=== PATIENT | male | born 1930 | race Caucasian/White ===

== ENCOUNTER 2020-06-20 12:13 | Emergency (ER) | payer MEDICARE ==
[~2020-06-20] VITALS: Ht 182.9 cm; Wt 79.5 kg
[2020-06-20 15:58] LABS: ALANINE AMINOTRANSFERASE 24 U/L (12-78); ALBUMIN 3.9 G/DL (3.4-5.0); ALBUMIN/GLOBULIN RATIO 0.9 (1.1-1.5); ALKALINE PHOSPHATASE 79 IU/L (46-116); ANION GAP 9 (8-16); ASPARTATE AMINO TRANSFERASE 25 U/L (10-37); BILIRUBIN,TOTAL 0.7 MG/DL (0.1-1.0); BLOOD UREA NITROGEN 19 MG/DL (7-18); BUN/CREATININE RATIO 23.2 (5.4-32.0); CALCIUM 8.9 MG/DL (8.5-10.1); CHLORIDE 105 MMOL/L (99-107); CREATININE 0.82 MG/DL (0.60-1.10); GLUCOSE 133 MG/DL (70-104); SODIUM 142 MMOL/L (135-145); TOTAL CARBON DIOXIDE 27.9 MMOL/L (24-32); TOTAL PROTEIN 8.3 G/DL (6.4-8.2); eGFR 89 ML/MIN
--- NOTE | 2020-06-20 16:15 | NUR ---
Pt taken to MRI
[2020-06-20] MEDS ORDERED: PRED50TA PO (17:01)
[2020-06-20] MEDS ORDERED: iohexol 350MG/ML 100ml bottle IV ONE (18:11)
[2020-06-20 18:23] LABS: BASOPHILS % (AUTO) 0.5 % (0-1); EOSINOPHILS % (AUTO) 0.5 % (0-6); HEMATOCRIT 41.5 % (42.0-52.0); LYMPHOCYTES % (AUTO) 18.4 % (21-51); MEAN CORPUSCULAR HEMOGLOBIN 32.1 PG (27.0-31.0); MEAN CORPUSCULAR HGB CONC 33.7 g/dL (33.0-36.5); MEAN CORPUSCULAR VOLUME 95.3 FL (78-98); MEAN PLATELET VOLUME 9.1 FL (7.4-10.4); MONOCYTES # (AUTO) 0.4 X10'3 (0-0.9); MONOCYTES % (AUTO) 7.9 % (2-12); NEUTROPHILS # (AUTO) 3.8 X10'3 (1.8-7.7); NEUTROPHILS % (AUTO) 72.7 % (42-75); PLATELET COUNT 125 X10'3 (140-440); RED BLOOD COUNT 4.36 X10'6 (4.70-6.10); RED CELL DISTRIBUTION WIDTH 13.6 % (11.5-14.5); WHITE BLOOD COUNT 5.2 X10'3 (4.5-11.0)
[2020-06-20 18:35] LABS: PARTIAL THROMBOPLASTIN TIME 30 SECONDS (22-32)
[2020-06-20 19:52] VITALS: BP 189/95
[2020-06-21] MEDS ORDERED: PRED10TA23 PO (11:45)
== END 2020-06-20 20:26 | disposition home or self-care (01) ==
LOC: ER 12:15
DX: H91.92 Unspecified hearing loss, left ear (principal); Z79.899 Other long term (current) drug therapy
CPT/HCPCS: 36415; 70496; 70498; 70543; 70553; 80053; 85025; 85610; 85730; 93005; 99285; Q9967

== ENCOUNTER 2020-06-21 09:15 | Emergency (ER) | payer MEDICARE ==
[~2020-06-21] VITALS: Ht 182.9 cm; Wt 77.3 kg
[~2020-06-21 09:15] MED LIST: PRED50TA PO
--- NOTE | 2020-06-21 10:14 | NUR ---
PAGED TO ROOM 7 FOR IV. UPON ARRIVAL PT HAS TWO WORKING IV'S PT IN NON-COMPLIANT WITH HOLDING STILL. SPOKE WITH MEDICAL SECRETARY TEACHER SHE STATED MAREN SAID TO CALL THE PICC NURSE TO PLACE A PICC LINE. ADVISED RN THAT A PICC LINE FOR THIS PATIENT IS NOT APPROPRIATE UNTIL I CAN GET HER TO A LARGER ROOM WITH PRIVACY TO DECREASE RISK OF CLABSI AND PATIENT COMPLIANCE WITH HOLDING STILL. Sandra JORDAN PICC RN
[2020-06-21 11:35] VITALS: BP 162/92
--- NOTE | 2020-06-21 11:36 | NUR ---
Provider is discussing the plan of care with the patient at this time.
[2020-06-21] MEDS ORDERED: PRED10TA23 PO (11:45)
== END 2020-06-21 12:21 | disposition home or self-care (01) ==
LOC: ER 09:15
DX: H91.92 Unspecified hearing loss, left ear (principal); I65.22 Occlusion and stenosis of left carotid artery; Z79.899 Other long term (current) drug therapy
CPT/HCPCS: 99283; 99284

== ENCOUNTER 2020-07-13 08:59 | Emergency (ER) | payer MEDICARE ==
[~2020-07-13] VITALS: Ht 182.9 cm; Wt 79.5 kg
[~2020-07-13 08:59] MED LIST changes: +ASPI81TA52 PO; +MULT-1085 PO; +PRED10TA23 PO; +VIT C PO
[2020-07-13] MEDS ORDERED: iohexol 300mg/ml 100ml inj. ONE (09:11)
[2020-07-13 11:15] VITALS: BP 192/107
[2020-07-13 11:27] VITALS: BP 140/83
[2020-07-13 12:15] VITALS: BP 155/91
[2020-07-13 12:51] LABS: BFSOURCE LEFT PLEURAL FLD; PLEURAL FLUID PH 7.178 (7.63-7.65)
[2020-07-13 13:08] LABS: BF RBC COUNT 125 /CU MM; BF WBC COUNT 715 /CU MM (0-1000); BFAPPEAR HAZY; BFCOLOR YELLOW; BFVOLUME 59 ML; LYMPHOCYTES,BODY FLUID 79 %; MONOCYTES,BODY FLUID 14 %; NEUTROPHILS,BODY FLUID 7 %
[2020-07-13 13:12] LABS: GLUCOSE,BODY FLUID 118 MG/DL; LDH,BODY FLUID 76 U/L; TOTAL PROTEIN,BODY FLUID 3.7 G/DL
== END 2020-07-13 12:17 | disposition home or self-care (01) ==
LOC: ER 09:00
DX: J90 Pleural effusion, not elsewhere classified (principal); I48.91 Unspecified atrial fibrillation; Z79.82 Long term (current) use of aspirin; Z79.899 Other long term (current) drug therapy
CPT/HCPCS: 32555; 71046; 71260; 82945; 83615; 83986; 84157; 89051; 99285; Q9967

== ENCOUNTER 2020-09-24 08:17 | Day surgery (SDC) | payer MEDICARE ==
[~2020-09-24] VITALS: Ht 182.9 cm; Wt 78.4 kg
[2020-09-24 08:15] VITALS: BP 179/89
[~2020-09-24 08:17] MED LIST changes: +ASCO-134 PO; -PRED10TA23 PO; -PRED50TA PO; -VIT C PO
[2020-09-24 08:38] VITALS: BP 161/109
[2020-09-24] MEDS ORDERED: albumin 25% 100mL bottle x 1 IV PRN (08:40)
[2020-09-24 08:55] VITALS: BP 145/107
[2020-09-24 09:15] VITALS: BP 163/95
[2020-09-24 10:09] LABS: GLUCOSE,BODY FLUID 117 MG/DL; LDH,BODY FLUID 97 U/L; TOTAL PROTEIN,BODY FLUID 3.6 G/DL
[2020-09-24 10:39] LABS: BFAPPEAR HAZY; BFCOLOR YELLOW
[2020-09-24 10:40] LABS: BF RBC COUNT 9475 /CU MM; BF WBC COUNT 2525 /CU MM (0-1000); BFVOLUME 60 ML; LYMPHOCYTES,BODY FLUID 88 %; MONOCYTES,BODY FLUID 4 %; NEUTROPHILS,BODY FLUID 8 %
== END 2020-09-24 09:35 | disposition home or self-care (01) ==
LOC: SSTAY O 08:17
PROVIDERS: ATTEND Radiology Vascular & Interventional Radiology
DX: J90 Pleural effusion, not elsewhere classified (principal); J45.909 Unspecified asthma, uncomplicated; I10 Essential (primary) hypertension; I48.0 Paroxysmal atrial fibrillation; Z87.01 Personal history of pneumonia (recurrent); Z79.82 Long term (current) use of aspirin; Z79.899 Other long term (current) drug therapy; Z98.890 Other specified postprocedural states
CPT/HCPCS: 32555; 71045; 82945; 83615; 84157; 87070; 89051

== ENCOUNTER 2020-11-02 09:39 | Inpatient (IN) | payer MEDICARE ==
[~2020-11-02] VITALS: Ht 182.9 cm; Wt 81.2 kg
[2020-11-02 11:55] LABS: BASOPHILS % (AUTO) 0.9 % (0-1); HEMATOCRIT 43.7 % (42.0-52.0); HEMOGLOBIN 14.8 g/dl (14.0-17.9); LYMPHOCYTES # (AUTO) 0.6 X10'3 (1.1-4.8); MEAN CORPUSCULAR HEMOGLOBIN 32.2 PG (27.0-31.0); MEAN CORPUSCULAR HGB CONC 33.8 g/dL (33.0-36.5); MEAN CORPUSCULAR VOLUME 95.3 FL (78-98); MONOCYTES # (AUTO) 0.3 X10'3 (0-0.9); MONOCYTES % (AUTO) 7.5 % (2-12); NEUTROPHILS # (AUTO) 3.1 X10'3 (1.8-7.7); RED CELL DISTRIBUTION WIDTH 15.1 % (11.5-14.5)
[2020-11-02 11:57] LABS: EOSINOPHILS % (AUTO) 0.8 % (0-6); LYMPHOCYTES % (AUTO) 14.5 % (21-51); NEUTROPHILS % (AUTO) 76.3 % (42-75); PLATELET COUNT 123 X10'3 (140-440); RED BLOOD COUNT 4.59 X10'6 (4.70-6.10)
[2020-11-02 12:10] LABS: ALANINE AMINOTRANSFERASE 20 U/L (12-78); ALBUMIN 4.1 G/DL (3.4-5.0); ALKALINE PHOSPHATASE 79 IU/L (46-116); ANION GAP 10 (8-16); ASPARTATE AMINO TRANSFERASE 30 U/L (10-37); BILIRUBIN,TOTAL 0.9 MG/DL (0.1-1.0); BLOOD UREA NITROGEN 21 MG/DL (7-18); BUN/CREATININE RATIO 25.6 (5.4-32.0); CALCIUM 8.7 MG/DL (8.5-10.1); CHLORIDE 102 MMOL/L (99-107); CREATININE 0.82 MG/DL (0.60-1.10); GLUCOSE 108 MG/DL (70-104); POTASSIUM 4.1 MMOL/L (3.5-5.1); SODIUM 143 MMOL/L (135-145); TOTAL PROTEIN 8.4 G/DL (6.4-8.2); eGFR 89 ML/MIN
[2020-11-02] MEDS ORDERED: POLY15DR31 EACHEYE (13:35)
[2020-11-02 14:54] VITALS: BP 165/124
[2020-11-02 15:12] VITALS: BP 152/91
[2020-11-02] MEDS ORDERED: magnesium hydroxide 30ml (MOM) UD suspension PO PRN (15:20)
[2020-11-02] MEDS ORDERED: acetaminophen 325mg tablet PO PRN ×2 (15:20)
[2020-11-02] MEDS ORDERED: HYDROcodone/acetaminophen 5mg/325mg tablet PO PRN (15:20)
[2020-11-02] MEDS ORDERED: potassium Cl 20 mEq SR tablet PO PRN ×2 (15:20)
[2020-11-02] MEDS ORDERED: magnesium 4gm in 100ml NS 100 ML IV PRN (15:20)
[2020-11-02] MEDS ORDERED: potassium Cl 40MEQ/1/2NS 520ml 520 ML IV PRN ×2 (15:20)
[2020-11-02] MEDS ORDERED: magnesium Cl slow-release 64mg tablet PO PRN (15:20)
[2020-11-02] MEDS ORDERED: mag hydrox/Alum hydrox/simeth 30ml oral suspension PO PRN (15:20)
[2020-11-02] MEDS ORDERED: morphine 2 MG/ML inj. syringe IV PRN (15:20)
[2020-11-02] MEDS ORDERED: ondansetron/PF 4mg/2ml inj IV PRN (15:20)
[2020-11-02] MEDS ORDERED: magnesium 2GM in 50ml NS 50 ML IV PRN (15:20)
[2020-11-02 15:50] LABS: BFSOURCE LEFT PLEURAL FLD; PLEURAL FLUID PH 7.437 (7.63-7.65)
[2020-11-02 16:15] LABS: GLUCOSE,BODY FLUID 117 MG/DL; LDH,BODY FLUID 90 U/L; TOTAL PROTEIN,BODY FLUID 3.5 G/DL
[2020-11-02 16:29] LABS: BF WBC COUNT 875 /CU MM (0-1000); BFAPPEAR HAZY; BFCOLOR YELLOW; BFVOLUME 58 ML; LYMPHOCYTES,BODY FLUID 95 %; MONOCYTES,BODY FLUID 2 %; NEUTROPHILS,BODY FLUID 3 %
[2020-11-02 16:30] LABS: BF RBC COUNT 185 /CU MM
[2020-11-02] MEDS ORDERED: albuterol 2.5 MG/3 ML nebule NEB PRN (17:25)
[2020-11-02] MEDS ORDERED: CefTRIAXone 2gm/D5W 50ml BAG 50 ML IV ONE (17:30)
[2020-11-02] MEDS: furosemide 40mg/4ml inj IV SCH (19:19)
[2020-11-02] MEDS: K and/or MAG REPLACEMENT MC SCH (19:20)
[2020-11-02] MEDS: heparin, porcine 5000 units/ml vial SQ SCH (19:20)
--- NOTE | 2020-11-02 22:03 | NUR ---
PAGER ID: [phone] MESSAGE: [phone] , Chantal savannah patients troponins went from 0.05 to 0.06. just informing . no changes on status/condition or vitals signs thank you Sidney black
[2020-11-03 05:43] LABS: BASOPHILS % (AUTO) 0.7 % (0-1); EOSINOPHILS % (AUTO) 0.8 % (0-6); HEMATOCRIT 39.9 % (42.0-52.0); HEMOGLOBIN 13.5 g/dl (14.0-17.9); LYMPHOCYTES # (AUTO) 0.7 X10'3 (1.1-4.8); LYMPHOCYTES % (AUTO) 13.2 % (21-51); MEAN CORPUSCULAR HEMOGLOBIN 31.9 PG (27.0-31.0); MEAN CORPUSCULAR HGB CONC 33.9 g/dL (33.0-36.5); MEAN CORPUSCULAR VOLUME 94.2 FL (78-98); MONOCYTES # (AUTO) 0.5 X10'3 (0-0.9); MONOCYTES % (AUTO) 8.8 % (2-12); NEUTROPHILS # (AUTO) 4.2 X10'3 (1.8-7.7); NEUTROPHILS % (AUTO) 76.5 % (42-75); PLATELET COUNT 100 X10'3 (140-440); RED BLOOD COUNT 4.23 X10'6 (4.70-6.10); RED CELL DISTRIBUTION WIDTH 14.9 % (11.5-14.5); WHITE BLOOD COUNT 5.4 X10'3 (4.5-11.0)
[2020-11-03 06:03] LABS: ALANINE AMINOTRANSFERASE 15 U/L (12-78); ALBUMIN/GLOBULIN RATIO 0.9 (1.1-1.5); ALKALINE PHOSPHATASE 62 IU/L (46-116); ANION GAP 6 (8-16); ASPARTATE AMINO TRANSFERASE 26 U/L (10-37); BILIRUBIN,TOTAL 0.9 MG/DL (0.1-1.0); BLOOD UREA NITROGEN 22 MG/DL (7-18); BUN/CREATININE RATIO 26.8 (5.4-32.0); CALCIUM 8.1 MG/DL (8.5-10.1); CHLORIDE 105 MMOL/L (99-107); CREATININE 0.82 MG/DL (0.60-1.10); GLUCOSE 92 MG/DL (70-104); POTASSIUM 3.8 MMOL/L (3.5-5.1); SODIUM 142 MMOL/L (135-145); TOTAL CARBON DIOXIDE 30.8 MMOL/L (24-32); TOTAL PROTEIN 6.4 G/DL (6.4-8.2); eGFR 89 ML/MIN
[2020-11-03 06:06] LABS: MAGNESIUM 1.7 MG/DL (1.5-2.4)
--- NOTE | 2020-11-03 06:26 | NUR ---
Patient awake on a hospital bed,denies sob at this time.Awaiting room patient assignment,call light within reach.
[2020-11-03 06:45] LABS: ANISOCYTOSIS 1+; LARGE PLATELETS FEW; PLATELET ESTIMATE DECREASED; POIKILOCYTOSIS FEW
[2020-11-03] MEDS: pantoprazole 40mg Tablet.DR PO SCH (07:21)
[2020-11-03] MEDS: heparin, porcine 5000 units/ml vial SQ SCH ×2 (07:21→19:41)
[2020-11-03] MEDS: furosemide 40mg/4ml inj IV SCH ×2 (07:23→15:10)
[2020-11-03] MEDS: CefTRIAXone 2gm/D5W 50ml BAG 50 ML IV SCH (07:27)
[2020-11-03] MEDS: K and/or MAG REPLACEMENT MC SCH ×2 (08:00→19:42)
--- NOTE | 2020-11-03 08:13 | NUR ---
patient refused lasix,Dr. Newsome made aware.
[2020-11-03 15:04] VITALS: BP 137/85
[2020-11-03 18:00] VITALS: BP 138/80
--- NOTE | 2020-11-03 18:18 | NUR ---
Problems reprioritized. Patient report given, questions answered & plan of care reviewed with PETER Reyes.
[2020-11-03] MEDS: carVEDilol 3.125mg tablet PO SCH (19:41)
[2020-11-03] MEDS: lactobacillus rhamnosus 10,000 MMU CELLS/CAPSULE PO SCH (19:41)
[2020-11-03 22:00] VITALS: BP 130/64
[2020-11-04 02:00] VITALS: BP 102/55
[2020-11-04 06:00] VITALS: BP 144/78
[2020-11-04 06:02] LABS: BASOPHILS % (AUTO) 0.8 % (0-1); EOSINOPHILS # (AUTO) 0.2 X10'3 (0-0.9); EOSINOPHILS % (AUTO) 4.2 % (0-6); HEMATOCRIT 38.5 % (42.0-52.0); HEMOGLOBIN 12.9 g/dl (14.0-17.9); LYMPHOCYTES # (AUTO) 0.7 X10'3 (1.1-4.8); LYMPHOCYTES % (AUTO) 13.7 % (21-51); MEAN CORPUSCULAR HEMOGLOBIN 30.9 PG (27.0-31.0); MEAN CORPUSCULAR HGB CONC 33.5 g/dL (33.0-36.5); MEAN CORPUSCULAR VOLUME 92.4 FL (78-98); MEAN PLATELET VOLUME 9.8 FL (7.4-10.4); MONOCYTES # (AUTO) 0.7 X10'3 (0-0.9); MONOCYTES % (AUTO) 12.9 % (2-12); NEUTROPHILS # (AUTO) 3.6 X10'3 (1.8-7.7); NEUTROPHILS % (AUTO) 68.4 % (42-75); PLATELET COUNT 104 X10'3 (140-440); RED BLOOD COUNT 4.17 X10'6 (4.70-6.10); RED CELL DISTRIBUTION WIDTH 14.9 % (11.5-14.5); WHITE BLOOD COUNT 5.2 X10'3 (4.5-11.0)
[2020-11-04 06:14] LABS: ALANINE AMINOTRANSFERASE 14 U/L (12-78); ALBUMIN 2.7 G/DL (3.4-5.0); ALBUMIN/GLOBULIN RATIO 0.8 (1.1-1.5); ALKALINE PHOSPHATASE 54 IU/L (46-116); ANION GAP 4 (8-16); ASPARTATE AMINO TRANSFERASE 21 U/L (10-37); BILIRUBIN,TOTAL 0.9 MG/DL (0.1-1.0); BLOOD UREA NITROGEN 23 MG/DL (7-18); CHLORIDE 106 MMOL/L (99-107); CREATININE 0.82 MG/DL (0.60-1.10); GLUCOSE 97 MG/DL (70-104); MAGNESIUM 1.8 MG/DL (1.5-2.4); POTASSIUM 3.7 MMOL/L (3.5-5.1); SODIUM 143 MMOL/L (135-145); TOTAL PROTEIN 5.9 G/DL (6.4-8.2); eGFR 89 ML/MIN
--- NOTE | 2020-11-04 06:20 | NUR ---
Patient in room MED 313. I have received report from wayne mcdonald and had the opportunity to ask questions and assume patient care.
--- NOTE | 2020-11-04 06:32 | NUR ---
Problems reprioritized. Patient report given, questions answered & plan of care reviewed with Елена GREEN. Addendum: 11/04/20 at 0632 by Amy Velasquez RN Amended: Links added.
[2020-11-04] MEDS: carVEDilol 3.125mg tablet PO SCH (07:42)
[2020-11-04] MEDS: lactobacillus rhamnosus 10,000 MMU CELLS/CAPSULE PO SCH (07:43)
[2020-11-04] MEDS: pantoprazole 40mg Tablet.DR PO SCH (07:43)
[2020-11-04] MEDS: CefTRIAXone 2gm/D5W 50ml BAG 50 ML IV SCH (07:45)
[2020-11-04] MEDS: heparin, porcine 5000 units/ml vial SQ SCH (07:45)
[2020-11-04] MEDS: K and/or MAG REPLACEMENT MC SCH (07:46)
[2020-11-04] MEDS: furosemide 40mg/4ml inj IV SCH (07:56)
[2020-11-04] MEDS ORDERED: COR3.125T PO (09:37)
[2020-11-04] MEDS ORDERED: FURO20TA4 PO (09:37)
[2020-11-04] MEDS ORDERED: ASPI-1265 PO (09:39)
--- NOTE | 2020-11-04 10:45 | NUR ---
reviewed all discharge instructions ,including need for f/u with PCP within 1 week prescription confirmed with gordon @ [facility] dc'd from [facility],site as[facility] pt dc'd via w/c with all belongings
== END 2020-11-04 11:51 | disposition home or self-care (01) | DRG 292 ==
LOC: ER 09:40 → ED HOLD 15:16 → EDBEDREQ 11-03 14:04 → MED 3N 11-03 14:55
PROVIDERS: ADMIT Internal Medicine; ATTEND Internal Medicine
PROC: 0W9B3ZZ Drainage of Left Pleural Cavity, Percutaneous Approach (ICD-10-PCS; principal; 2020-11-02)
DX: I11.0 Hypertensive heart disease with heart failure (principal); I48.20 Chronic atrial fibrillation, unspecified; I50.33 Acute on chronic diastolic (congestive) heart failure; I25.10 Atherosclerotic heart disease of native coronary artery without angina pectoris; D69.6 Thrombocytopenia, unspecified; I42.9 Cardiomyopathy, unspecified; J45.909 Unspecified asthma, uncomplicated; Z87.01 Personal history of pneumonia (recurrent)
CPT/HCPCS: 32555; 36415; 71045; 71046; 80053; 82945; 83605; 83615; 83735; 83880; 83986; 84157; 84484; 85008; 85025; 87040; 87070; 87081; 87102; 89051; 93005; 93306; 94760; 96365; 99285; G0378; J0696; J1644; J1940

== ENCOUNTER 2020-11-29 07:53 | Day surgery (SDC) | payer MEDICARE ==
[~2020-11-29] VITALS: Ht 182.9 cm; Wt 76.7 kg
[~2020-11-29 07:53] MED LIST changes: +ASPI-1265 PO; -ASPI81TA52 PO; +COR3.125T PO; +FURO20TA4 PO; +POLY15DR31 EACHEYE
[2020-11-29] MEDS ORDERED: FURO-150 PO (08:15)
[2020-11-29 08:30] VITALS: BP 169/93
[2020-11-29 09:30] VITALS: BP 164/100
[2020-11-29 09:45] VITALS: BP 154/107
[2020-11-29 10:00] VITALS: BP 153/98
[2020-11-29 10:10] VITALS: BP 161/88
== END 2020-11-29 10:13 | disposition home or self-care (01) ==
LOC: SSTAY O 07:53
PROVIDERS: ATTEND Radiology Diagnostic Radiology
DX: J90 Pleural effusion, not elsewhere classified (principal); J45.909 Unspecified asthma, uncomplicated; I48.91 Unspecified atrial fibrillation; I10 Essential (primary) hypertension; I65.29 Occlusion and stenosis of unspecified carotid artery; Z87.01 Personal history of pneumonia (recurrent); Z79.01 Long term (current) use of anticoagulants; Z79.899 Other long term (current) drug therapy
CPT/HCPCS: 32555

== ENCOUNTER 2020-12-18 07:56 | Day surgery (SDC) | payer MEDICARE ==
[~2020-12-18] VITALS: Ht 182.9 cm; Wt 76.3 kg
[~2020-12-18 07:56] MED LIST changes: -ASCO-134 PO; -ASPI-1265 PO; -COR3.125T PO; +FURO-150 PO; -FURO20TA4 PO; -MULT-1085 PO; -POLY15DR31 EACHEYE
[2020-12-18] MEDS ORDERED: albumin 25% 100mL bottle x 1 IV PRN (08:35)
[2020-12-18 09:04] VITALS: BP 152/117
[2020-12-18 09:40] VITALS: BP 172/81
[2020-12-18 09:41] VITALS: BP 160/97
[2020-12-18 09:56] VITALS: BP 147/95
[2020-12-18 10:06] VITALS: BP 166/95
== END 2020-12-18 10:20 | disposition home or self-care (01) ==
LOC: SSTAY O 07:56
PROVIDERS: ATTEND Radiology Vascular & Interventional Radiology
DX: J90 Pleural effusion, not elsewhere classified (principal); I48.91 Unspecified atrial fibrillation; I10 Essential (primary) hypertension; Z87.01 Personal history of pneumonia (recurrent); Z79.01 Long term (current) use of anticoagulants; Z98.890 Other specified postprocedural states; Z85.3 Personal history of malignant neoplasm of breast; Z79.899 Other long term (current) drug therapy
CPT/HCPCS: 32555

== ENCOUNTER 2021-01-18 08:28 | Day surgery (SDC) | payer MEDICARE ==
[~2021-01-18] VITALS: Ht 182.9 cm; Wt 74.3 kg
[2021-01-18] MEDS ORDERED: CARV-49 PO (09:05)
[2021-01-18] MEDS ORDERED: POTA10TA36 PO (09:05)
[2021-01-18 09:21] VITALS: BP 131/80
[2021-01-18 10:30] VITALS: BP 156/99
[2021-01-18 10:45] VITALS: BP 136/70
[2021-01-18 11:00] VITALS: BP 127/75
== END 2021-01-18 11:15 | disposition home or self-care (01) ==
LOC: SSTAY O 08:28
PROVIDERS: ATTEND Radiology Diagnostic Radiology
DX: J90 Pleural effusion, not elsewhere classified (principal); I11.0 Hypertensive heart disease with heart failure; I50.30 Unspecified diastolic (congestive) heart failure; I48.91 Unspecified atrial fibrillation; J45.909 Unspecified asthma, uncomplicated; Z87.01 Personal history of pneumonia (recurrent); Z79.01 Long term (current) use of anticoagulants
CPT/HCPCS: 32555

== ENCOUNTER 2021-02-15 08:31 | Day surgery (SDC) | payer MEDICARE ==
[~2021-02-15] VITALS: Ht 182.9 cm; Wt 73.1 kg
[~2021-02-15 08:31] MED LIST changes: +CARV-49 PO; +POTA10TA36 PO
[2021-02-15 09:02] VITALS: BP 145/82
[2021-02-15 09:45] VITALS: BP 116/97
[2021-02-15 10:15] VITALS: BP 109/95
== END 2021-02-15 10:30 | disposition home or self-care (01) ==
LOC: SSTAY O 08:31
PROVIDERS: ATTEND Preventive Medicine Aerospace Medicine
DX: J90 Pleural effusion, not elsewhere classified (principal); J45.909 Unspecified asthma, uncomplicated; I48.91 Unspecified atrial fibrillation; I10 Essential (primary) hypertension; I65.29 Occlusion and stenosis of unspecified carotid artery; Z87.01 Personal history of pneumonia (recurrent); Z79.899 Other long term (current) drug therapy; Z98.890 Other specified postprocedural states
CPT/HCPCS: 32555

== ENCOUNTER 2021-03-08 06:33 | Day surgery (SDC) | payer MEDICARE ==
[~2021-03-08] VITALS: Ht 182.9 cm; Wt 72.4 kg
[2021-03-08 06:50] VITALS: BP 162/88
[2021-03-08] MEDS ORDERED: normal saline 1000ml 1,000 ML IV PRN (06:50)
[2021-03-08] MEDS ORDERED: albumin 25% 100mL bottle x 1 IV PRN (06:50)
[2021-03-08 08:40] VITALS: BP_SYST 163; BP_SYST 165; BP_DIAS 93
[2021-03-08 08:55] VITALS: BP 129/72
[2021-03-08 09:00] VITALS: BP 165/93
[2021-03-08 09:10] VITALS: BP 138/83
[2021-03-08 09:30] VITALS: BP 126/85
== END 2021-03-08 09:55 | disposition home or self-care (01) ==
LOC: SSTAY O 06:33
PROVIDERS: ATTEND Radiology Diagnostic Radiology
DX: J90 Pleural effusion, not elsewhere classified (principal); J45.909 Unspecified asthma, uncomplicated; I48.91 Unspecified atrial fibrillation; I65.29 Occlusion and stenosis of unspecified carotid artery; I10 Essential (primary) hypertension; Z87.01 Personal history of pneumonia (recurrent); Z79.01 Long term (current) use of anticoagulants; Z98.890 Other specified postprocedural states; Z79.899 Other long term (current) drug therapy
CPT/HCPCS: 32555

== ENCOUNTER 2021-04-09 07:30 | Day surgery (SDC) | payer MEDICARE ==
[~2021-04-09] VITALS: Ht 182.9 cm; Wt 77.4 kg
[2021-04-09] MEDS ORDERED: MULT-1085 PO (07:50)
[2021-04-09 08:00] VITALS: BP 149/94
[2021-04-09] MEDS ORDERED: albumin 25% 100mL bottle x 1 IV PRN (08:00)
[2021-04-09 09:15] VITALS: BP 140/100
[2021-04-09 09:25] VITALS: BP 143/83
[2021-04-09 09:40] VITALS: BP 144/86
[2021-04-09 09:55] VITALS: BP 148/97
== END 2021-04-09 10:00 | disposition home or self-care (01) ==
LOC: SSTAY O 07:30
PROVIDERS: ATTEND Radiology Vascular & Interventional Radiology
DX: J90 Pleural effusion, not elsewhere classified (principal); J45.909 Unspecified asthma, uncomplicated; I48.91 Unspecified atrial fibrillation; I10 Essential (primary) hypertension; Z87.01 Personal history of pneumonia (recurrent); Z79.01 Long term (current) use of anticoagulants; Z79.899 Other long term (current) drug therapy
CPT/HCPCS: 32555

== ENCOUNTER 2021-04-17 07:00 | Day surgery (SDC) | payer MEDICARE ==
[2021-04-16 13:05] LABS: BASOPHILS % (AUTO) 0.8 % (0-1); EOSINOPHILS # (AUTO) 0.1 X10'3 (0-0.9); HEMATOCRIT 38.5 % (42.0-52.0); HEMOGLOBIN 12.8 g/dl (14.0-17.9); LYMPHOCYTES # (AUTO) 0.6 X10'3 (1.1-4.8); LYMPHOCYTES % (AUTO) 13.3 % (21-51); MEAN CORPUSCULAR HEMOGLOBIN 31.4 PG (27.0-31.0); MEAN CORPUSCULAR HGB CONC 33.2 g/dL (33.0-36.5); MEAN CORPUSCULAR VOLUME 94.7 FL (78-98); MEAN PLATELET VOLUME 8.7 FL (7.4-10.4); MONOCYTES # (AUTO) 0.4 X10'3 (0-0.9); MONOCYTES % (AUTO) 9.3 % (2-12); NEUTROPHILS # (AUTO) 3.3 X10'3 (1.8-7.7); NEUTROPHILS % (AUTO) 74.6 % (42-75); PLATELET COUNT 152 X10'3 (140-440); RED BLOOD COUNT 4.07 X10'6 (4.70-6.10); RED CELL DISTRIBUTION WIDTH 14.6 % (11.5-14.5); WHITE BLOOD COUNT 4.5 X10'3 (4.5-11.0)
[2021-04-16 13:13] LABS: ALBUMIN 3.2 G/DL (3.4-5.0); ANION GAP 8 (8-16); BLOOD UREA NITROGEN 21 MG/DL (7-18); BUN/CREATININE RATIO 26.3 (5.4-32.0); CALCIUM 8.4 MG/DL (8.5-10.1); CHLORIDE 107 MMOL/L (99-107); GLUCOSE 157 MG/DL (70-104); POTASSIUM 4.3 MMOL/L (3.5-5.1); SODIUM 145 MMOL/L (135-145); eGFR > 90 ML/MIN
[2021-04-16 13:17] LABS: PARTIAL THROMBOPLASTIN TIME 30 SECONDS (22-32)
[2021-04-17] VITALS (13 sets, daily range): BP systolic 127–191; BP diastolic 65–119
[~2021-04-17] VITALS: Ht 182.9 cm; Wt 78.6 kg
[~2021-04-17 07:00] MED LIST changes: -FURO-150 PO; +MULT-1085 PO; -POTA10TA36 PO
[2021-04-17] MEDS ORDERED: LIDOcaine/PRILOcaine 5gm cream TP ONE (07:30)
[2021-04-17] MEDS ORDERED: LORazepam 0.5 MG tablet PO PRN (07:30)
[2021-04-17] MEDS ORDERED: normal saline 1,000 ML IV SCH (07:30)
[2021-04-17] MEDS ORDERED: diphenhydrAMINE 25mg capsule PO PRN (07:30)
[2021-04-17] MEDS ORDERED: nitroGLYCERIN-Tridil 50MG/D5W 250 ML IV ONE (08:02)
[2021-04-17] MEDS ORDERED: heparin 1,000unit/ml 10ml vial 10 ML ONE (08:03)
[2021-04-17] MEDS ORDERED: verapamil 2.5 mg/ml inj IV ONE (08:03)
[2021-04-17] MEDS ORDERED: LIDOcaine 1% (10mg/ml)w/preservative injection 20ml MDV ONE (08:03)
[2021-04-17] MEDS ORDERED: fentaNYL/PF 50MCG/1 ML 2ML syringe ONE (08:03)
[2021-04-17] MEDS ORDERED: iohexol 350MG/ML 100ml bottle IV ONE ×3 (08:03→10:35)
[2021-04-17] MEDS ORDERED: iohexol 350 MG/ML 50ML vial IV ONE (08:03)
[2021-04-17] MEDS ORDERED: midazolam 1 mg/ML 2ml injection ONE (08:03)
[2021-04-17] MEDS ORDERED: heparin 25,000 UNIT/250ml bag 250 ML IV ONE (10:06)
[2021-04-17] MEDS ORDERED: clopidogrel 300mg tablet ONE (10:54)
[2021-04-17 11:04] LABS: ISTAT HGB ART 11.2 g/dl (14.0-18.0); ISTAT Hct ART 33 %PCV (42-52); ISTAT O2 SATURATION ARTERIAL 91 % (95-98); ISTAT SOURCE ART
[2021-04-17 12:46] LABS: ISTAT Hct MIX 36 %PCV (42-52); ISTAT O2 SATURATION MIX VENOUS 56 % (60-80); ISTAT SOURCE VEN
== END 2021-04-17 17:59 | disposition home or self-care (01) ==
LOC: SSTAY O 07:00
PROVIDERS: ATTEND Internal Medicine Cardiovascular Disease
DX: R53.83 Other fatigue (principal); R06.02 Shortness of breath; I25.10 Atherosclerotic heart disease of native coronary artery without angina pectoris; I11.0 Hypertensive heart disease with heart failure; I50.22 Chronic systolic (congestive) heart failure; I27.20 Pulmonary hypertension, unspecified; I48.20 Chronic atrial fibrillation, unspecified; E78.5 Hyperlipidemia, unspecified; I36.1 Nonrheumatic tricuspid (valve) insufficiency; I65.29 Occlusion and stenosis of unspecified carotid artery; Z98.890 Other specified postprocedural states; Z95.5 Presence of coronary angioplasty implant and graft
CPT/HCPCS: 36415; 76937; 80048; 82803; 85014; 85025; 85347; 85610; 85730; 93005; 93460; C1725; C1751; C1769; C1874; C1894; C9600; J1644; J2001; J2250; J3010; J7030; Q0163; Q9967; A4620; A5120; A6258; J3490

== ENCOUNTER 2021-04-29 05:43 | Day surgery (SDC) | payer MEDICARE ==
[~2021-04-29] VITALS: Ht 182.9 cm; Wt 76.0 kg
[2021-04-29 06:15] VITALS: BP 156/90
[2021-04-29] MEDS ORDERED: CLOP75TA34 PO (06:19)
[2021-04-29] MEDS ORDERED: LOSA25TA41 PO (06:19)
[2021-04-29] MEDS ORDERED: CARV-50 PO (06:19)
[2021-04-29 08:15] VITALS: BP 156/86
[2021-04-29 08:30] VITALS: BP 158/104
[2021-04-29 08:45] VITALS: BP 166/96
[2021-04-29 09:00] VITALS: BP 146/57
== END 2021-04-29 09:20 | disposition home or self-care (01) ==
LOC: SSTAY O 05:43
PROVIDERS: ATTEND Radiology Vascular & Interventional Radiology
DX: J90 Pleural effusion, not elsewhere classified (principal); J45.909 Unspecified asthma, uncomplicated; I48.91 Unspecified atrial fibrillation; I11.0 Hypertensive heart disease with heart failure; I50.30 Unspecified diastolic (congestive) heart failure; I65.29 Occlusion and stenosis of unspecified carotid artery; Z87.01 Personal history of pneumonia (recurrent); Z79.01 Long term (current) use of anticoagulants
CPT/HCPCS: 32555

== ENCOUNTER 2021-06-06 06:50 | Day surgery (SDC) | payer MEDICARE ==
[~2021-06-06] VITALS: Ht 182.9 cm; Wt 78.0 kg
[~2021-06-06 06:50] MED LIST changes: -CARV-49 PO; +CARV-50 PO; +CLOP75TA34 PO; +LOSA25TA41 PO
[2021-06-06] MEDS ORDERED: albumin 25% 100mL bottle x 1 IV PRN (07:15)
[2021-06-06] MEDS ORDERED: LIDOcaine 1% 30ml preserv. free vial IJ STA (07:51)
[2021-06-06 08:00] VITALS: BP 159/118
[2021-06-06 08:35] VITALS: BP 166/103
[2021-06-06 08:50] VITALS: BP 154/101
[2021-06-06 09:05] VITALS: BP 155/97
[2021-06-06 09:20] VITALS: BP 166/104
== END 2021-06-06 09:30 | disposition home or self-care (01) ==
LOC: SSTAY O 06:50
PROVIDERS: ATTEND Preventive Medicine Aerospace Medicine
DX: J90 Pleural effusion, not elsewhere classified (principal); J45.909 Unspecified asthma, uncomplicated; I48.91 Unspecified atrial fibrillation; I10 Essential (primary) hypertension; I65.29 Occlusion and stenosis of unspecified carotid artery; Z87.01 Personal history of pneumonia (recurrent); Z98.890 Other specified postprocedural states; Z79.01 Long term (current) use of anticoagulants; Z79.899 Other long term (current) drug therapy
CPT/HCPCS: 32555

== ENCOUNTER 2021-09-03 08:59 | Inpatient (IN) | payer MEDICARE ==
[~2021-09-03] VITALS: Ht 182.9 cm; Wt 72.7 kg
[2021-09-03] MEDS ORDERED: normal saline 1000ML IV soln IV ONE (09:15)
[2021-09-03] MEDS ORDERED: tranexamic acid 1gm/0.7% sal. 100 ML IV ONE (09:35)
--- NOTE | 2021-09-03 09:48 | NUR ---
pt to ct.
[2021-09-03 09:58] LABS: BASOPHILS % (AUTO) 0.6 % (0-1); EOSINOPHILS # (AUTO) 0.1 X10'3 (0-0.9); HEMATOCRIT 33.9 % (42.0-52.0); HEMOGLOBIN 11.5 g/dl (14.0-17.9); LYMPHOCYTES # (AUTO) 0.6 X10'3 (1.1-4.8); LYMPHOCYTES % (AUTO) 13.6 % (21-51); MEAN CORPUSCULAR HGB CONC 33.9 g/dL (33.0-36.5); MEAN CORPUSCULAR VOLUME 94.6 FL (78-98); MONOCYTES # (AUTO) 0.5 X10'3 (0-0.9); MONOCYTES % (AUTO) 9.7 % (2-12); NEUTROPHILS # (AUTO) 3.4 X10'3 (1.8-7.7); NEUTROPHILS % (AUTO) 74.1 % (42-75); PLATELET COUNT 140 X10'3 (140-440); RED BLOOD COUNT 3.59 X10'6 (4.70-6.10); RED CELL DISTRIBUTION WIDTH 15.3 % (11.5-14.5); WHITE BLOOD COUNT 4.6 X10'3 (4.5-11.0)
--- NOTE | 2021-09-03 10:00 | NUR ---
Back from CT at this time via wheelchair.
[2021-09-03 10:15] LABS: ALANINE AMINOTRANSFERASE 20 U/L (12-78); ALBUMIN 3.4 G/DL (3.4-5.0); ALKALINE PHOSPHATASE 86 IU/L (46-116); ANION GAP 10 (8-16); ASPARTATE AMINO TRANSFERASE 33 U/L (10-37); BLOOD UREA NITROGEN 20 MG/DL (7-18); BUN/CREATININE RATIO 28.2 (5.4-32.0); CALCIUM 8.1 MG/DL (8.5-10.1); CHLORIDE 104 MMOL/L (99-107); CREATININE 0.71 MG/DL (0.60-1.10); GLUCOSE 126 MG/DL (70-104); SODIUM 141 MMOL/L (135-145); TOTAL CARBON DIOXIDE 27.1 MMOL/L (24-32); TOTAL PROTEIN 6.9 G/DL (6.4-8.2); eGFR > 90 ML/MIN
[2021-09-03 10:25] LABS: POTASSIUM 4.4 MMOL/L (3.5-5.1)
[2021-09-03 11:32] LABS: HEMATOCRIT 34.1 % (42.0-52.0); HEMOGLOBIN 11.3 g/dl (14.0-17.9); MEAN CORPUSCULAR HEMOGLOBIN 30.9 PG (27.0-31.0); MEAN CORPUSCULAR HGB CONC 33.1 g/dL (33.0-36.5); MEAN CORPUSCULAR VOLUME 93.4 FL (78-98); MEAN PLATELET VOLUME 8.8 FL (7.4-10.4); PLATELET COUNT 128 X10'3 (140-440); RED BLOOD COUNT 3.65 X10'6 (4.70-6.10); RED CELL DISTRIBUTION WIDTH 15.1 % (11.5-14.5); WHITE BLOOD COUNT 7.2 X10'3 (4.5-11.0)
[2021-09-03] MEDS ORDERED: ondansetron/PF 4mg/2ml inj IV PRN (13:20)
[2021-09-03] MEDS ORDERED: magnesium Cl slow-release 64mg tablet PO PRN (13:20)
[2021-09-03] MEDS ORDERED: acetaminophen 325mg tablet PO PRN (13:20)
[2021-09-03] MEDS ORDERED: magnesium 4gm in 100ml NS 100 ML IV PRN (13:20)
[2021-09-03] MEDS ORDERED: morphine 2 MG/ML inj. syringe IV PRN (13:20)
[2021-09-03] MEDS ORDERED: potassium CL 10mEq/100ml bag 100 ML IV PRN (13:20)
[2021-09-03] MEDS ORDERED: potassium Cl 20 mEq SR tablet PO PRN ×2 (13:20)
[2021-09-03] MEDS ORDERED: magnesium hydroxide 30ml (MOM) UD suspension PO PRN (13:20)
[2021-09-03] MEDS ORDERED: magnesium 2GM in 50ml NS 50 ML IV PRN (13:20)
[2021-09-03] MEDS ORDERED: mag hydrox/Alum hydrox/simeth 30ml oral suspension PO PRN (13:20)
[2021-09-03] MEDS ORDERED: iohexol 300mg/ml 100ml inj. ONE (13:55)
[2021-09-03] MEDS: dextrose 5%-1/2 normal saline 1,000 ML IV SCH ×2 (14:04→23:01)
[2021-09-03 14:25] LABS: CLARITY,URINE CLEAR (Clear); COLOR,URINE YELLOW (Yellow); GLUCOSE, URINE NEGATIVE (Neg); KETONES,URINE 15 mg/dl (Neg); LEUKOCYTE ESTERASE ,URINE NEGATIVE (Neg); NITRITES, URINE NEGATIVE (Neg); OCCULT BLOOD,URINE TRACE-INTACT (Neg); PROTEIN,URINE NEGATIVE (Neg); UROBILINOGEN,URINE 0.2 E.U/dL (0.2-1.0)
[2021-09-03 14:30] LABS: MAGNESIUM 1.7 MG/DL (1.5-2.4)
[2021-09-03 14:35] LABS: UA COLLECTION TYPE CLN CATCH MIDSTREAM
[2021-09-03 14:41] LABS: BACTERIA,URINE NONE SEEN /HPF (Neg); MUCUS STRANDS NONE SEEN /LPF (Neg); RBC,URINE NONE SEEN /HPF (0-2); SQUAMOUS EPITHELIAL CELL,UR NONE SEEN /LPF (FEW); WBC,URINE NONE SEEN /HPF (0-4)
--- NOTE | 2021-09-03 18:35 | NUR ---
Spoke to Dr. Myers requesting a diet: clear liquid.
[2021-09-03] MEDS: docusate sod 100mg capsule PO SCH (20:00)
[2021-09-03] MEDS: K and/or MAG REPLACEMENT MC SCH (20:00)
[2021-09-03] MEDS: carVEDilol 12.5mg tablet PO SCH (20:09)
[2021-09-03 22:00] VITALS: BP 138/79
[2021-09-04 02:00] VITALS: BP 123/64
[2021-09-04 06:20] LABS: MAGNESIUM 1.5 MG/DL (1.5-2.4); POTASSIUM 3.5 MMOL/L (3.5-5.1)
[2021-09-04] MEDS ORDERED: multivitamins, therapeutics tablet PO SCH (08:00)
[2021-09-04] MEDS: K and/or MAG REPLACEMENT MC SCH (08:00)
[2021-09-04] MEDS ORDERED: losartan 25mg tablet PO SCH (08:00)
[2021-09-04 08:40] VITALS: BP_SYST 123
[2021-09-04] MEDS: carVEDilol 12.5mg tablet PO SCH (08:40)
[2021-09-04] MEDS: docusate sod 100mg capsule PO SCH (08:40)
[2021-09-04] MEDS: dextrose 5%-1/2 normal saline 1,000 ML IV SCH (08:42)
--- NOTE | 2021-09-04 09:21 | NUR ---
Age screen: Pt admit dx lower GI bleed per EMR. Pending PO intake on clear liquid diet. Per skin assessment pt has no open areas, though pending physical assessment. Pt w/ unscaled wt 73kg this admit, w/ scaled wt hx 78kg June 2021 per EMR. Will continue to follow. Addendum: 09/04/21 at [address] Amended: Links added. Addendum: 09/04/21 at [address] I have reviewed and agree with note by Crew Mess AttendantJulienne Duarte RD
--- NOTE | 2021-09-04 11:14 | NUR ---
patient alert x4. at bedside, decided to go home against medical advise.AMA. dr Myers. notified and saw the patient. charge nurse was also notified.
== END 2021-09-04 10:52 | disposition left against medical advice (07) | DRG 379 ==
LOC: ER 09:01 → ED HOLD 13:24 → PCU 3S 22:18
PROVIDERS: ADMIT Internal Medicine; ATTEND Internal Medicine
PROC: BW211ZZ Computerized Tomography (CT Scan) of Abdomen and Pelvis using Low Osmolar Contrast (ICD-10-PCS; principal; 2021-09-03)
DX: K92.2 Gastrointestinal hemorrhage, unspecified (principal); I48.91 Unspecified atrial fibrillation; D64.9 Anemia, unspecified; Z53.29 Procedure and treatment not carried out because of patient's decision for other reasons; Z79.899 Other long term (current) drug therapy
CPT/HCPCS: 36415; 71045; 74176; 74177; 80053; 81001; 83735; 84132; 85025; 85027; 85610; 86885; 86900; 86901; 87081; 93005; 96361; 96365; 99285; G0378; J3490; J7030; J7042; Q9967

== ENCOUNTER 2021-09-10 08:28 | Day surgery (SDC) | payer MEDICARE ==
[~2021-09-10] VITALS: Ht 182.9 cm; Wt 79.3 kg
[2021-09-10] MEDS ORDERED: LIDOcaine 1%/PF 5ML 10 MG/ML VIAL SQ ONE (08:40)
[2021-09-10 08:43] VITALS: BP 141/88
[2021-09-10] MEDS ORDERED: albumin 25% 100mL bottle x 1 IV PRN (08:45)
[2021-09-10 09:20] VITALS: BP 139/86
[2021-09-10 09:35] VITALS: BP 137/82
[2021-09-10 09:50] VITALS: BP 141/77
[2021-09-10 10:10] VITALS: BP 135/80
== END 2021-09-10 10:20 | disposition home or self-care (01) ==
LOC: SSTAY O 08:28
PROVIDERS: ATTEND Radiology Vascular & Interventional Radiology
DX: J90 Pleural effusion, not elsewhere classified (principal); J45.909 Unspecified asthma, uncomplicated; I48.91 Unspecified atrial fibrillation; I10 Essential (primary) hypertension; I65.29 Occlusion and stenosis of unspecified carotid artery; Z79.01 Long term (current) use of anticoagulants; Z87.01 Personal history of pneumonia (recurrent); Z98.890 Other specified postprocedural states; Z85.3 Personal history of malignant neoplasm of breast; Z79.899 Other long term (current) drug therapy
CPT/HCPCS: 32555

== ENCOUNTER 2021-10-24 07:17 | Day surgery (SDC) | payer MEDICARE ==
[~2021-10-24] VITALS: Ht 182.9 cm; Wt 77.3 kg
[~2021-10-24 07:17] MED LIST changes: -CLOP75TA34 PO; +LIDOcaine 1%/PF 5ML 10 MG/ML VIAL IJ ONE
[2021-10-24 07:45] VITALS: BP 157/97
[2021-10-24] MEDS ORDERED: albumin 25% 100mL bottle x 1 IV PRN (08:05)
[2021-10-24 09:25] VITALS: BP 157/97
[2021-10-24 09:30] VITALS: BP 165/105
[2021-10-24 09:45] VITALS: BP 145/68
[2021-10-24 10:00] VITALS: BP 156/96
== END 2021-10-24 10:15 | disposition home or self-care (01) ==
LOC: SSTAY O 07:17
PROVIDERS: ATTEND Radiology Vascular & Interventional Radiology
DX: J90 Pleural effusion, not elsewhere classified (principal); J45.909 Unspecified asthma, uncomplicated; I10 Essential (primary) hypertension; I48.91 Unspecified atrial fibrillation; I65.29 Occlusion and stenosis of unspecified carotid artery; Z87.01 Personal history of pneumonia (recurrent); Z98.890 Other specified postprocedural states; Z79.899 Other long term (current) drug therapy
CPT/HCPCS: 32555; J3490